=== PATIENT | female | born 1985 | race Caucasian/White ===

== ENCOUNTER 2018-08-02 09:19 | Inpatient (IN) ==
[2018-08-02 10:12] LABS: Bilirubin,Urine Negative (Negative); Blood,Urine Negative (Negative); Color,Urine Yellow (Yellow); Glucose,Urine (UA) Normal (Normal); Ketones,Urine Negative (Negative); Leukocyte Esterase,Urine Moderate (Negative); Nitrite,Urine Negative (Negative); Protein,Urine Negative (Neg-Trace); Specific Gravity,Urine 1.016 (1.010-1.025); Urobilinogen,Urine Normal (Normal)
--- NOTE | 2018-08-02 10:13 | Emergency Department Note ---
Disposition Clinical Impression: Suicidal ideation Disposition: Admitted As Inpatient Condition: Fair Referrals: NONE,PCP [Non-Partnered Physician] - Forms: ED Satisfaction Letter General Adult HPI - General Chief complaint: ED Psychiatric Symptoms Stated complaint: SI (Pt states i want to ) Time Seen by Provider: 08/02/18 09:38 Source: patient, family Limitations: no limitations Nursing Notes Reviewed: Yes Vital Signs Reviewed: Yes - History of Present Illness HPI Narrative: 33 yo female with past medical history of depression, anxiety, seizure disorder presents to the emergency department with suicidal ideation. She states that she is tired of trying and just wants to . She has not taken any of her medications since Thursday with the exception of a Klonopin this morning before going to her Doctor's appointment. She states that she feels if she took any of her medications she would have overdosed on them. She has no ideations of hurting others. She denies hallucinations. She has not tried to overdose on anything. She has access to knives at home but does not have a suicidal plan with these. She denies other medical problems besides prediabetes and migraines. Nothing happened within the last few days to increase her suicidal ideations. Pain Scale: 0 - Related Data Home Medications Medication Instructions Recorded Confirmed DiphenhydraMINE [Benadryl] 25 mg PO Q4HR PRN 07/28/17 04/12/18 Pantoprazole Sodium [Protonix] 40 mg PO QPM 07/28/17 04/12/18 Promethazine [Phenergan] 25 mg PO Q12H PRN 07/28/17 04/12/18 Tizanidine HCl [Zanaflex] 2 mg PO BID 07/28/17 04/12/18 clonazePAM [Klonopin] 2 mg PO HS 07/28/17 04/12/18 Erenumab-Aooe [Aimovig 1 unit IJ QMONTH 04/12/18 04/12/18 Autoinjector] Ergocalciferol (VITAMIN D2) 50,000 unit PO MO 04/12/18 04/12/18 [Vitamin D2] Quetiapine Fumarate [Seroquel] 100 mg PO HS 04/12/18 04/12/18 Topiramate 200 mg PO DAILY 04/12/18 04/12/18 Vilazodone HCl [Viibryd] 20 mg PO DAILY 04/12/18 04/12/18 clonazePAM [Klonopin] 1 mg PO BID 04/12/18 04/12/18 raNITIdine HCl [Zantac] 150 mg PO DAILY 04/12/18 04/12/18 Acetaminophen/Butalbital/Caffe 1 tab PO BID PRN 08/02/18 08/02/18 [Fioricet] Cyanocobalamin/Folic AC/Vit B6 1 tab PO DAILY 08/02/18 08/02/18 [Folbic Tablet] Furosemide [Lasix] 40 mg PO DAILY PRN 08/02/18 08/02/18 Lisinopril [Zestril] 5 mg PO DAILY 08/02/18 08/02/18 Allergies Allergy/AdvReac Type Severity Reaction Status Date / Time No Known Allergies Allergy Verified 08/02/18 12:28 All systems ED: reviewed and negative except as stated. Review of Systems: As Per HPI Constitutional: Denies: fever, chills Cardiovascular: Denies: chest pain Respiratory: Denies: cough, dyspnea Gastrointestinal: Denies: abdominal pain, nausea, vomiting Genitourinary: Denies: dysuria Musculoskeletal: Denies: back pain, neck pain Integumentary: Denies: rash Neurological: Reports: headache. Denies: weakness, numbness Psychiatric: Reports: anxiety, depression, suicidal thoughts. Denies: homicidal thoughts, auditory hallucinations, visual hallucinations Endocrine: Reports: fatigue Past Medical History - Past Medical History Medical history: Reports: GERD, migraine, seizures Surgical history: Reports: appendectomy, cholecystectomy Psychiatric history: Reports: anxiety, depression PUBLISHING DIRECTOR history: Reports: no PUBLISHING DIRECTOR history - Social History Smoking Status: Current every day smoker Smokeless Tobacco Status: No Alcohol use: Reports: none Drug use: Reports: none Physical Exam - General Limitations: no limitations General appearance: alert, in no apparent distress - Head Head exam: atraumatic, normocephalic - Eye Eye exam: Present: normal appearance, PERRL, EOMI - ENT ENT exam: normal exam, normal oropharynx - Neck Neck exam: Present: normal inspection - Chest Chest inspection: Present: normal inspection - Respiratory Respiratory exam: Present: other (decreased breath sounds bilaterally). Absent: wheezes, stridor - Cardiovascular Cardiovascular exam: Present: normal rhythm, tachycardia - Abdominal Exam Abdominal exam: Present: soft, Non-Tender. Absent: distention, guarding, rebound, rigidity - Extremities Exam Extremities exam: Present: pedal edema. Absent: calf tenderness - Neurological Exam Neurological exam: Present: alert, oriented X3 - Psychiatric Psychiatric exam: Present: depressed, anxious, flat affect - Skin Skin exam: Present: warm, dry, intact Course Vital Signs Temperature 97.5 F L 08/02/18 09:22 Pulse Rate 105 08/02/18 09:22 Respiratory Rate 18 08/02/18 09:22 Blood Pressure 125/88 08/02/18 09:22 O2 Sat by Pulse Oximetry 100 08/02/18 09:22 Temperature 97.5 F L 08/02/18 09:22 Pulse Rate 105 08/02/18 09:22 Respiratory Rate 18 08/02/18 09:22 Blood Pressure 125/88 08/02/18 09:22 O2 Sat by Pulse Oximetry 100 08/02/18 09:22 Oxygen Delivery Oxygen Delivery Room Air Medical Decision Making - MDM Narrative Medical decision making narrative: This patient is complaining of suicidal ideations without any attempt. We will medically clear her and then speak with [facility]. 1200 - [facility] has accepted the patient for further workup of her depression and SI. We will order her home seizure medication topiramate here in the ED before transport. - Medical Records Medical records reviewed: Yes I reviewed the patient's medical records. - Lab Data Lab results reviewed: Yes I reviewed the patient's lab results. Result diagrams: 08/02/18 10:01 08/02/18 10:01 Lab Results 08/02/18 08/02/18 08/02/18 Range/Units 09:35 09:57 10:01 WBC 8.6 (4.3-11.1) K/mcL RBC 4.98 H (3.82-4.97) M/mcL Hgb 13.9 (11.5-15.4) g/dL Hct 42.4 (35.3-44.9) % MCV 85.1 (83.0-100.0) fL MCH 27.9 L (28.0-33.3) pg MCHC 32.8 (31.6-35.5) g/dL RDW 12.9 (11.5-14.5) % Plt Count 204 (140-400) K/mcL MPV 10.7 (9.4-12.4) fL Immature Gran % 0.7 (0-4) % Seg Neutrophils % 66.2 % Lymphocytes % 24.3 % Monocytes % 7.0 % Eosinophils % 1.3 % Basophils % 0.5 % Neutrophils # 5.7 (1.6-8.9) K/mcL Lymphocytes # 2.1 (0.6-4.6) K/mcL Monocytes # 0.6 (0.0-1.3) K/mcL Eosinophils # 0.1 (0.0-0.6) K/mcL Basophils # 0.0 (0.0-0.2) K/mcL Sodium (136-145) mEq/L Potassium (3.5-5.1) mEq/L Chloride (98-107) mEq/L Carbon Dioxide (23-29) mEq/L BUN (6-20) mg/dL Creatinine (0.60-1.20) mg/dL Est GFR ( Amer) (> 60) Est GFR (Non-Af Amer) (> 60) BUN/Creatinine Ratio (6-26) Glucose (70-105) mg/dL Calculated Osmolality (280-300) Calcium (8.6-10.3) mg/dL Ur Specimen Adequacy See below A Urine Color Yellow (Yellow) Urine Clarity Slightly Hazy (Clear) Urine pH 6.0 (5.0-8.0) pH Units Ur Specific [place] 1.016 (1.010-1.025) Urine Protein Negative (Neg-Trace) mg/dL Urine Glucose (UA) Normal (Normal) mg/dL Urine Ketones Negative (Negative) mg/dL Urine Blood Negative (Negative) Urine Nitrite Negative (Negative) Urine Bilirubin Negative (Negative) Urine Urobilinogen Normal (Normal) mg/dL Ur Leukocyte Esterase Moderate H (Negative) Urine Microscopic RBC 0-3 (0-3) per hpf Urine Microscopic WBC 5-15 H (0-3) per hpf Ur Squamous Epith Cells Many H (None-Few) per lpf Urine Bacteria Moderate H (None-Few) per hpf Hyaline Casts None Seen (None-Few) per lpf Salicylates (15.0-30.0) mg/dL Urine Opiates Screen Negative (Witcle=024) ng/mL Acetaminophen (10-20) mcg/mL Ur Barbiturates Screen Negative (Vrrnyr=917) ng/mL Ur Phencyclidine Scrn Negative (Cutoff=25) ng/mL Ur Amphetamines Screen Negative (Lufsen=9077) ng/mL U Benzodiazepines Scrn Negative (Uqgmkv=107) ng/mL Urine Cocaine Screen Negative (Cutoff= 300) ng/mL U Marijuana (THC) Screen Negative (Cutoff = 50) ng/mL Ur Drug Screen Interp See Below Ethyl Alcohol (Less than 10) mg/dL 08/02/18 Range/Units 10:01 WBC (4.3-11.1) K/mcL RBC (3.82-4.97) M/mcL Hgb (11.5-15.4) g/dL Hct (35.3-44.9) % MCV (83.0-100.0) fL MCH (28.0-33.3) pg MCHC (31.6-35.5) g/dL RDW (11.5-14.5) % Plt Count (140-400) K/mcL MPV (9.4-12.4) fL Immature Gran % (0-4) % Seg Neutrophils % % Lymphocytes % % Monocytes % % Eosinophils % % Basophils % % Neutrophils # (1.6-8.9) K/mcL Lymphocytes # (0.6-4.6) K/mcL Monocytes # (0.0-1.3) K/mcL Eosinophils # (0.0-0.6) K/mcL Basophils # (0.0-0.2) K/mcL Sodium 138 (136-145) mEq/L Potassium 3.5 (3.5-5.1) mEq/L Chloride 108 H (98-107) mEq/L Carbon Dioxide 23 (23-29) mEq/L BUN 11 (6-20) mg/dL Creatinine 0.60 (0.60-1.20) mg/dL Est GFR ( Amer) > 60 (> 60) Est GFR (Non-Af Amer) > 60 (> 60) BUN/Creatinine Ratio 18 (6-26) Glucose 103 (70-105) mg/dL Calculated Osmolality 286 (280-300) Calcium 8.8 (8.6-10.3) mg/dL Ur Specimen Adequacy Urine Color (Yellow) Urine Clarity (Clear) Urine pH (5.0-8.0) pH Units Ur Specific [place] (1.010-1.025) Urine Protein (Neg-Trace) mg/dL Urine Glucose (UA) (Normal) mg/dL Urine Ketones (Negative) mg/dL Urine Blood (Negative) Urine Nitrite (Negative) Urine Bilirubin (Negative) Urine Urobilinogen (Normal) mg/dL Ur Leukocyte Esterase (Negative) Urine Microscopic RBC (0-3) per hpf Urine Microscopic WBC (0-3) per hpf Ur Squamous Epith Cells (None-Few) per lpf Urine Bacteria (None-Few) per hpf Hyaline Casts (None-Few) per lpf Salicylates < 2.5 L (15.0-30.0) mg/dL Urine Opiates Screen (Jdzlwe=169) ng/mL Acetaminophen < 10 L (10-20) mcg/mL Ur Barbiturates Screen (Uqqptr=112) ng/mL Ur Phencyclidine Scrn (Cutoff=25) ng/mL Ur Amphetamines Screen (Kenxsu=5539) ng/mL U Benzodiazepines Scrn (Sxeqiz=111) ng/mL Urine Cocaine Screen (Cutoff= 300) ng/mL U Marijuana (THC) Screen (Cutoff = 50) ng/mL Ur Drug Screen Interp Ethyl Alcohol < 10 (Less than 10) mg/dL
[2018-08-02 10:15] LABS: Basophils % 0.5 %; Eosinophils # 0.1 K/mcL (0.0-0.6); Eosinophils % 1.3 %; Hematocrit 42.4 % (35.3-44.9); Hemoglobin 13.9 g/dL (11.5-15.4); Immature Granulocytes % 0.7 % (0-4); Lymphocytes # 2.1 K/mcL (0.6-4.6); Lymphocytes % 24.3 %; Mean Corpuscular HGB Conc 32.8 g/dL (31.6-35.5); Mean Corpuscular Hemoglobin 27.9 pg (28.0-33.3); Mean Corpuscular Volume 85.1 fL (83.0-100.0); Mean Platelet Volume 10.7 fL (9.4-12.4); Monocytes # 0.6 K/mcL (0.0-1.3); Neutrophils # 5.7 K/mcL (1.6-8.9); Platelet Count 204 K/mcL (140-400); Red Blood Count 4.98 M/mcL (3.82-4.97); Red Cell Distribution Width 12.9 % (11.5-14.5); Segmented Neutrophils % 66.2 %
[2018-08-02 10:15] LABS: Bacteria,Urine Moderate per hpf (None-Few); Hyaline Casts,Urine None Seen per lpf (None-Few); RBC,Urine 0-3 per hpf (0-3); Squamous Epithelial Cell,Urine Many per lpf (None-Few)
[2018-08-02 10:18] LABS: Clarity,Urine Slightly Hazy (Clear)
--- NOTE | 2018-08-02 10:19 | Emergency Department Note ---
Disposition Clinical Impression: Suicidal ideation Disposition: Still a Patient Referrals: NONE,PCP [Primary Care Provider] - General Adult HPI - General Chief complaint: ED Psychiatric Symptoms Stated complaint: SI (Pt states i want to ) Time Seen by Provider: 08/02/18 09:38 Source: patient, family Limitations: no limitations Nursing Notes Reviewed: Yes Vital Signs Reviewed: Yes - History of Present Illness HPI Narrative: Attestation note: Patient was seen with the emergency medicine resident/nurse practitioner/physician certified pathology assistant/transitional resident/medical student: Dr. Anabelle Akins I have personally performed a face to face evaluation on this patient. I have reviewed and agree with history and physical examination patient management and disposition. Briefly the salient points of the case are as follows: 33-year-old female with history of psychogenic nonepileptic form seizures and depression presents with suicidal ideations with no discrete plan although she says she will not take her medicines. Mental health admissions patient is indeed morbidly obese hypertensive with "borderline diabetes". Patient is afebrile stable vitals patient will undergo medical clearance and evaluation of bowel health services. Patient will be pink slipped. Disposition pending Pain Scale: 0 - Related Data Home Medications Medication Instructions Recorded Confirmed DiphenhydraMINE [Benadryl] 25 mg PO Q4HR PRN 07/28/17 04/12/18 Ipratropium/Albuterol Neb [Duoneb] 3 ml IH Q6HR PRN 07/28/17 04/12/18 Pantoprazole Sodium [Protonix] 40 mg PO QPM 07/28/17 04/12/18 Promethazine [Phenergan] 25 mg PO Q12H PRN 07/28/17 04/12/18 Tizanidine HCl [Zanaflex] 2 mg PO BID 07/28/17 04/12/18 clonazePAM [Klonopin] 2 mg PO HS 07/28/17 04/12/18 Butalb/Acetaminophen/Caffeine 1 each PO BID PRN 04/12/18 04/12/18 [Fioricet 50-300-40 mg Capsule] Cyanocobalamin/Folic AC/Vit B6 1 tab PO DAILY 04/12/18 04/12/18 [Folbic Tablet] Erenumab-Aooe [Aimovig 1 unit IJ QMONTH 04/12/18 04/12/18 Autoinjector] Ergocalciferol (VITAMIN D2) 50,000 unit PO MO 04/12/18 04/12/18 [Vitamin D2] Nicotine Patch [Nicoderm] 21 mg TD DAILY 04/12/18 04/12/18 Quetiapine Fumarate [Seroquel] 100 mg PO HS 04/12/18 04/12/18 Topiramate 200 mg PO DAILY 04/12/18 04/12/18 Vilazodone HCl [Viibryd] 20 mg PO DAILY 04/12/18 04/12/18 clonazePAM [Klonopin] 1 mg PO BID 04/12/18 04/12/18 raNITIdine HCl [Zantac] 150 mg PO DAILY 04/12/18 04/12/18 Previous Rx's Medication Instructions Recorded Docusate [Colace] 100 mg PO BID #30 capsule 04/12/18 Oxycodone HCl/Acetaminophen 1 each PO Q4HR PRN 7 Days #30 04/12/18 [Percocet 5-325 mg Tablet] tablet Allergies Allergy/AdvReac Type Severity Reaction Status Date / Time No Known Allergies Allergy Verified 04/12/18 07:05 Past Medical History - Past Medical History Medical history: Reports: GERD, migraine, seizures Surgical history: Reports: appendectomy, cholecystectomy Psychiatric history: Reports: anxiety, depression 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: 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: no 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 - Social History Smoking Status: Current every day smoker Smokeless Tobacco Status: No Alcohol use: Reports: none Drug use: Reports: none Physical Exam - General Limitations: no limitations General appearance: alert, in no apparent distress Course Vital Signs Temperature 97.5 F L 08/02/18 09:22 Pulse Rate 105 08/02/18 09:22 Respiratory Rate 18 08/02/18 09:22 Blood Pressure 125/88 08/02/18 09:22 O2 Sat by Pulse Oximetry 100 08/02/18 09:22 Temperature 97.5 F L 08/02/18 09:22 Pulse Rate 105 08/02/18 09:22 Respiratory Rate 18 08/02/18 09:22 Blood Pressure 125/88 08/02/18 09:22 O2 Sat by Pulse Oximetry 100 08/02/18 09:22 Oxygen Delivery Oxygen Delivery Room Air Medical Decision Making - Lab Data Lab Results 08/02/18 Range/Units 09:57 Ur Drug Screen Interp See Below
[2018-08-02 10:26] LABS: Amphetamine Screen,Urine Negative ng/mL (Cutoff=1000); Barbiturate Screen,Urine Negative ng/mL (Cutoff=200); Benzodiazepines Screen,Urine Negative ng/mL (Cutoff=200); Cannabinoid Screen,Urine Negative ng/mL (Cutoff = 50); Cocaine Screen,Urine Negative ng/mL (Cutoff= 300); Opiate Screen,Urine Negative ng/mL (Cutoff=300); Phencyclidine Screen,Urine Negative ng/mL (Cutoff=25)
[2018-08-02 10:44] LABS: Acetaminophen < 10 mcg/mL (10-20); BUN/Creatinine Ratio 18 (6-26); Blood Urea Nitrogen 11 mg/dL (6-20); Calcium 8.8 mg/dL (8.6-10.3); Carbon Dioxide 23 mEq/L (23-29); Chloride 108 mEq/L (98-107); Ethanol < 10 mg/dL (Less than 10); Glucose 103 mg/dL (70-105); Osmolality,Calculated 286 (280-300); Potassium 3.5 mEq/L (3.5-5.1); Salicylate < 2.5 mg/dL (15.0-30.0); Sodium 138 mEq/L (136-145); eGFR For Non-African Americans > 60 (> 60)
[2018-08-02] MEDS ORDERED: Topiramate 100 MG TABLET PO ONE ×2 (12:02→12:30)
[2018-08-02] MEDS ORDERED: *HR* LORazepam 1 MG TABLET PO PRN ×2 (12:42→16:32)
[2018-08-02] MEDS ORDERED: traZODone 50 MG TABLET PO PRN ×2 (12:42→16:32)
[2018-08-02] MEDS ORDERED: Mag Hydrox/Al Hydrox/Simeth 30 ML UDC PO PRN ×2 (12:42→16:32)
[2018-08-02] MEDS ORDERED: MOM Conc 10 ML UD.LIQ PO PRN ×2 (12:42→16:32)
[2018-08-02] MEDS ORDERED: *HR* LORazepam 2 MG/ML VIAL IM PRN ×2 (12:42→16:32)
[2018-08-02] MEDS ORDERED: hydrOXYzine pamoate 25 MG CAPSULE PO PRN ×2 (12:42→16:32)
[2018-08-02] MEDS ORDERED: Haloperidol Lactate 5 MG/ML VIAL IM PRN ×2 (12:42→16:32)
[2018-08-02] MEDS ORDERED: Acetaminophen 325 MG TABLET PO PRN ×2 (12:42→16:32)
[2018-08-02] MEDS ORDERED: Acetaminophen/Butalbital/CaffeineTABLET PO PRN (16:35)
[2018-08-02] MEDS ORDERED: Furosemide 40 MG TABLET PO PRN (16:35)
[2018-08-02] MEDS ORDERED: ERENUMAB AOOE SQ SCH (16:45)
[2018-08-02] MEDS ORDERED: Ibuprofen 400 MG TABLET PO PRN (17:05)
[2018-08-02] MEDS: tiZANidine 4 MG TABLET PO SCH (20:37)
[2018-08-02] MEDS: Topiramate 100 MG TABLET PO SCH (20:38)
[2018-08-02] MEDS: clonazePAM 1 MG TABLET PO SCH (20:39)
[2018-08-03] MEDS: FOLIC AC PO SCH (08:35)
[2018-08-03] MEDS: VIT B6 PO SCH (08:35)
[2018-08-03] MEDS: Topiramate 100 MG TABLET PO SCH ×2 (08:35→20:12)
[2018-08-03] MEDS: CYANOCOBALAMIN PO SCH (08:35)
[2018-08-03] MEDS: Famotidine 20 MG TABLET PO SCH (08:36)
[2018-08-03] MEDS: clonazePAM 1 MG TABLET PO SCH ×3 (08:36→20:12)
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
[2018-08-03] MEDS: Cholecalciferol (D-3) 1,000 UNIT TABLET PO SCH (18:01)
[2018-08-03] MEDS: tiZANidine 4 MG TABLET PO SCH (20:11)
[2018-08-03] MEDS ORDERED: lamoTRIgine 25 MG TABLET PO SCH (21:00)
[2018-08-04] MEDS: Famotidine 20 MG TABLET PO SCH (08:45)
[2018-08-04] MEDS: clonazePAM 1 MG TABLET PO SCH ×3 (08:45→21:28)
[2018-08-04] MEDS: Topiramate 100 MG TABLET PO SCH ×2 (08:45→21:28)
[2018-08-04] MEDS: Cholecalciferol (D-3) 1,000 UNIT TABLET PO SCH (08:45)
[2018-08-04] MEDS: VIT B6 PO SCH (08:49)
[2018-08-04] MEDS: FOLIC AC PO SCH (08:49)
[2018-08-04] MEDS: CYANOCOBALAMIN PO SCH (08:49)
--- NOTE | 2018-08-04 09:15 | Psychiatry Progress Note ---
Date of Encounter: 08/04/18 Time of Encounter: 09:09 Subjective Interval history: Client reports she is feeling a little better but attributes it to being in the hospital. Knows once she returns home she will be right back to where she was prior to admission. Stated today she hates her mother and hates the fact that she is forced to live at home because she cannot drive or work. Discussed residential placements but client states she cannot live elsewhere because she has to be home to take care of her son. Denies rash or side effects to the Lamictal. Will increase dose tonight. Client wants to work on anger management today. States she needs this if she is going to continue to live at home. Plans to bring this up in her groups today. Discussed increasing her therapy visits once discharged and to seek anger management groups in the community. Will start working on her coping skills in the hospital but many of her issues are long standing and will need addressed over time. Client has been out interacting on the unit. Likes to stay busy. Claims when she is alone the JUNAID schroeder. Looked into sleep study. This can be ordered today. Will be done as an outpatient but the process can be started. Review of Systems Constitutional: Denies: fever, chills, weakness, weight change Eyes: Denies: eye pain, vision change Ears, Nose, Throat: Denies: ear pain, throat pain, dental pain, hearing loss, congestion Cardiovascular: Denies: chest pain, palpitations, dyspnea on exertion Respiratory: Denies: cough, dyspnea, wheezes Gastrointestinal: Denies: abdominal pain, nausea, vomiting, diarrhea, constipation Musculoskeletal: Denies: joint swelling, joint pain Neurological: Denies: headache, weakness, numbness, memory loss Results - Vital Signs Vital Signs: Temp Pulse Resp BP Pulse Ox 97.9 F 105 20 135/82 98 08/03/18 19:32 08/03/18 19:32 08/03/18 19:32 08/03/18 19:32 08/03/18 19:32 Assessment and Plan (1) Major depress dis, severe Current visit: Yes Status: Acute Plan: Continue hospitalization, Close observation, Suicide Precautions per unit protocol, Encourage participation in unit milieu, Group Therapy, Monitor sleep, Monitor appetite Risks, benefits, side effects, alternatives discussed w/pt: Yes Patient agreeable to treatment: Yes Consult Discharge Plan - Plan Referrals: [facility] [Outside] - 09/02/18 3:00 pm (You are scheduled to see Dr. Kowalski on September 02 at 9:15 AM. If you are unable to keep this appointment please contact the office at least 24 hours in advance. ) Psychiatry Exam - Constitutional Vitals: Temp Pulse Resp BP Pulse Ox 97.9 F 105 20 135/82 98 08/03/18 19:32 08/03/18 19:32 08/03/18 19:32 08/03/18 19:32 08/03/18 19:32 General appearance: obese - Musculoskeletal Gait: normal Station: relaxed Strength & Tone: normal for patient - Psychiatric Patient Orientation: Yes Person, Yes Time, Yes Place Level of alertness: Alert Behavior: calm, cooperative Psychomotor activity: Normal Eye Contact: Maintains Eye Contact Mood Description: Depressed Affect description: congruent with mood Speech Volume: Normal Speech pattern: normal rate, normal rhythm, normal tone, fluent, spontaneous Language & Vocabulary: consistent with education Thought Process: Linear Thought Content: Yes Suicidal ideation, No Homicidal ideation, No Overt delusions Perceptual Disturbances: No Auditory hallucinations, No Visual hallucinations Attention Span Ability: Capable of Focused Attention Memory Description: Grossly Intact Patient Reliability: Reliable Historian Fund of knowledge: Yes abstraction ability, Yes aware of current events Intelligence Estimate: Average Judgment: Fair Insight: Partial
[2018-08-04] MEDS ORDERED: lamoTRIgine 25 MG TABLET PO SCH (21:00)
[2018-08-04] MEDS: tiZANidine 4 MG TABLET PO SCH (21:26)
[2018-08-05] MEDS: Topiramate 100 MG TABLET PO SCH (08:26)
[2018-08-05] MEDS: Cholecalciferol (D-3) 1,000 UNIT TABLET PO SCH (08:26)
[2018-08-05] MEDS: Famotidine 20 MG TABLET PO SCH (08:27)
[2018-08-05] MEDS: clonazePAM 1 MG TABLET PO SCH ×2 (08:27→14:49)
[2018-08-05] MEDS: FOLIC AC PO SCH (08:29)
[2018-08-05] MEDS: VIT B6 PO SCH (08:29)
[2018-08-05] MEDS: CYANOCOBALAMIN PO SCH (08:29)
[2018-08-05 09:17] VITALS: BP 117/80
--- NOTE | 2018-08-05 09:50 | Discharge Summary ---
Date of Encounter: 08/05/18 Time of Encounter: 09:47 Diagnosis - Discharge Diagnosis (1) Major depress dis, severe Status: Acute Medications - Discharge Medications Prescriptions: lamoTRIgine [Lamictal] 50 mg PO HS #60 tablet DiphenhydraMINE [Benadryl] 25 mg PO Q4HR PRN 07/28/17 [History] Pantoprazole Sodium [Protonix] 40 mg PO QPM 07/28/17 [History] Promethazine [Phenergan] 25 mg PO Q12H PRN 07/28/17 [History] Tizanidine HCl [Zanaflex] 2 mg PO HS 07/28/17 [History] clonazePAM [Klonopin] 2 mg PO HS 07/28/17 [History] Erenumab-Aooe [Aimovig Autoinjector] 1 unit IJ QMONTH 04/12/18 [History] Ergocalciferol (VITAMIN D2) [Vitamin D2] 50,000 unit PO TU 04/12/18 [History] Quetiapine Fumarate [Seroquel] 100 mg PO HS 04/12/18 [History] Topiramate 200 mg PO BID 04/12/18 [History] Vilazodone HCl [Viibryd] 20 mg PO DAILY 04/12/18 [History] clonazePAM [Klonopin] 1 mg PO BID 04/12/18 [History] raNITIdine HCl [Zantac] 300 mg PO DAILY 04/12/18 [History] Acetaminophen/Butalbital/Caffe [Fioricet] 1 tab PO BID PRN 08/02/18 [History] Cyanocobalamin/Folic AC/Vit B6 [Folbic Tablet] 1 tab PO DAILY 08/02/18 [History] Furosemide [Lasix] 40 mg PO DAILY PRN 08/02/18 [History] Lisinopril [Zestril] 5 mg PO DAILY 08/02/18 [History] lamoTRIgine [Lamictal] 50 mg PO HS #60 tablet 08/05/18 [Rx] Allergy/AdvReac Type Severity Reaction Status Date / Time No Known Allergies Allergy Verified 08/02/18 12:28 Results Procedures and tests throughout hospitalization: Completed Lab Orders Category Date Time Status Acetaminophen Stat Lab 08/02/18 10:01 Completed Basic Metabolic Panel Stat Lab 01/28/19 10:01 Completed Complete Blood Count [HEME] Stat Lab 08/02/18 10:01 Completed Drug Screen, Urine [UCHEM] Stat Lab 08/02/18 09:57 Completed Ethanol Stat Lab 08/02/18 10:01 Completed Salicylate Stat Lab 08/02/18 10:01 Completed Urinalysis reflex Microscopic [URIN] Stat Lab 08/02/18 09:35 Completed Provider Date of admission: 08/02/18 15:10 Primary care physician: PCP NONE Discharging clinician: Ayla Leos Psychiatry Exam - Constitutional Vitals: Temp Pulse Resp BP Pulse Ox 97.5 F L 78 20 117/80 98 08/05/18 09:00 08/05/18 09:00 08/05/18 09:00 08/05/18 09:00 08/05/18 09:00 General appearance: obese - Musculoskeletal Gait: normal Station: relaxed Strength & Tone: normal for patient - Psychiatric Patient Orientation: Yes Person, Yes Time, Yes Place Level of alertness: Alert Behavior: calm, cooperative Psychomotor activity: Normal Eye Contact: Maintains Eye Contact Mood Description: Irritable Affect description: full range Speech Volume: Normal Speech pattern: normal rate, normal rhythm, normal tone, fluent, spontaneous Language & Vocabulary: consistent with education Thought Process: Linear, Goal Oriented Thought Content: No Suicidal ideation, No Homicidal ideation, No Overt delusions Perceptual Disturbances: No Auditory hallucinations, No Visual hallucinations Attention Span Ability: Capable of Focused Attention Memory Description: Grossly Intact Patient Reliability: Reliable Historian Fund of knowledge: Yes abstraction ability, Yes aware of current events Intelligence Estimate: Average Judgment: Fair Insight: Partial Hospital Course Hospital course: Ms. Callahan is a 33 year old female who was admitted secondary to SI. Client was already taking a variety of mental health medications and these were restarted. Lamictal was added for additional mood stabilization and titrated for clinical effect. Client seemed to love it on the unit. She was social with her peers and staff. She attended and participated in every group. She asked to start her own [employer] group. Client reported SI would return when she was alone but that provided she stayed active she was good. Discussed ways she could stay active in the community. Major stressor is living with her mother. Client given application for Section 8 housing. It is also highly suspected that client has YUMIKO. A referral for a sleep study was made. Client is obese with headaches, HTN, snoring, and multiple night time awakenings. Discussed how her mood will likely significantly improve once she is appropriately treated for her sleep disorder. Client was reluctant to leave the hospital but agreed her stressors will be there no matter when she is discharged and she has to learn to apply the coping skills she learned in the hospital at some point. She is already well linked with community mental health services and she is scheduled to follow up with her therapist, Psychiatrist and Neurologist this month. Client also said if she called her therapist today and let her know she was in the hospital she could be seen as early as this afternoon. On the unit client has been bright, reactive, social, outgoing. Does not appear outwardly depressed. Seems to like the sick role and being in the hospital. Aware she has a lot of supports and client agrees to seek out help if she feels in danger of harming herself or others after discharge. - Time Spent with Patient Total time spent providing and/or coordinating discharge services: Assessment and Plan - Patient/Caregiver Discharge Instructions Activity: resume usual activities as tolerated Diet: low fat, low cholesterol - Follow up Plan Follow up with: [facility] [Outside] - 09/02/18 3:00 pm (You are scheduled to see Dr. Kowalski on September 02 at 9:15 AM. If you are unable to keep this appointment please contact the office at least 24 hours in advance. ) Functional capacity at discharge: independent ambulation Overall status at discharge: Stable Disposition: Home, Self-Care Quality - Multiple Antipsychotics Patient discharged on 2 or more antipsychotic medications: No Procedures - Procedures Procedures: Medication Management, Crisis Stabilization, Supportive Therapy, Group Therapy
== END 2018-08-05 17:35 | disposition home or self-care (01) | DRG 751 ==
LOC: EMEROOARM 09:19 → 1ANU 11:10
PROVIDERS: ADMIT Psychiatry & Neurology Psychiatry; ATTEND Psychiatry & Neurology Psychiatry